=== PATIENT | female | born 1990 | race Caucasian/White ===

== ENCOUNTER 2021-05-11 07:56 | Inpatient (IN) ==
[2021-05-11] MEDS ORDERED: Metoclopramide 10 MG/2 ML VIAL IVP ONE (08:08)
[2021-05-11] MEDS ORDERED: Famotidine 20 MG/2 ML VIAL IVP ONE (08:08)
[2021-05-11] MEDS ORDERED: CeFAZolin 2,000 MG/120 ML BAG IVPB ONE (08:08)
[2021-05-11] MEDS ORDERED: Ringers Solution, Lactated 1,000 ML IVC ONE (08:08)
[2021-05-11] MEDS ORDERED: Ringers Solution, Lactated 1,000 ML IVC SCH (08:15)
[2021-05-11 08:58] LABS: Basophils % 0.3 %; Eosinophils # 0.1 K/mcL (0.0-0.6); Eosinophils % 1.2 %; Hematocrit 36.2 % (35.3-44.9); Hemoglobin 12.3 g/dL (11.5-15.4); Immature Granulocytes % 0.3 % (0-4); Lymphocytes # 1.4 K/mcL (0.6-4.6); Lymphocytes % 19.4 %; Mean Corpuscular Hemoglobin 31.1 pg (28.0-33.3); Mean Corpuscular Volume 91.6 fL (83.0-100.0); Mean Platelet Volume 10.5 fL (9.4-12.4); Monocytes # 0.5 K/mcL (0.0-1.3); Monocytes % 7.2 %; Neutrophils # 5.2 K/mcL (1.6-8.9); Platelet Count 238 K/mcL (140-400); Red Blood Count 3.95 M/mcL (3.82-4.97); Red Cell Distribution Width 14.6 % (11.5-14.5); Segmented Neutrophils % 71.6 %; White Blood Count 7.3 K/mcL (4.3-11.1)
[2021-05-11 09:32] LABS: Amphetamine Screen,Urine Negative ng/mL (Cutoff=1000); Barbiturate Screen,Urine Negative ng/mL (Cutoff=200); Benzodiazepines Screen,Urine Negative ng/mL (Cutoff=200); Cannabinoid Screen,Urine Negative ng/mL (Cutoff = 50); Cocaine Screen,Urine Negative ng/mL (Cutoff= 300); Opiate Screen,Urine Negative ng/mL (Cutoff=300); Phencyclidine Screen,Urine Negative ng/mL (Cutoff=25)
[2021-05-11 09:35] LABS: Influenza A PCR Negative (Negative); Influenza B PCR Negative (Negative); Resp. Syncytial Virus PCR Negative (Negative)
[2021-05-11 10:15] LABS: SARS-CoV-2 by PCR (In House) Negative (Negative)
[2021-05-11] MEDS ORDERED: Oxytocin 20 units/ LR 1000 mL 20 UNIT/1,000 ML BAG IVC ONE (10:19)
[2021-05-11] MEDS ORDERED: *HR* FentaNYL (PF) 100 MCG/2 ML VIAL ONE (10:53)
[2021-05-11] MEDS ORDERED: *HR* Morphine Sulfate/PF 10 MG/10 ML AMPUL ONE (10:53)
[2021-05-11] MEDS ORDERED: Ondansetron 4 MG/2 ML VIAL ONE (11:20)
[2021-05-11] MEDS ORDERED: EPHEDrine 50 MG/ML VIAL ONE (11:41)
[2021-05-11] MEDS ORDERED: *HR* Phenylephrine 10 MG/ML VIAL ONE (11:43)
[2021-05-11] MEDS ORDERED: Ketorolac 30 MG/ML VIAL ONE (11:50)
[2021-05-11] MEDS ORDERED: Acetaminophen IV 1,000 MG/100 ML BAG IVPB ONE (11:50)
[2021-05-11] MEDS ORDERED: *HR* OxyCODONE Immed Rel 5 MG TABLET PO PRN ×2 (12:47→17:08)
[2021-05-11] MEDS ORDERED: Acetaminophen IV 1,000 MG/100 ML BAG IVPB PRN (12:47)
[2021-05-11] MEDS ORDERED: *HR* Nalbuphine 10 MG/ML AMPUL IV PRN (12:48)
[2021-05-11] MEDS ORDERED: Oxytocin 20 units/ LR 1000 mL 20 UNIT/1,000 ML BAG IVC SCH (17:08)
[2021-05-11] MEDS ORDERED: Rho Immune Globulin 1,500 UNIT SYRINGE IM ONE (17:08)
[2021-05-11] MEDS ORDERED: Ondansetron 4 MG/2 ML VIAL IVP PRN (17:08)
[2021-05-11] MEDS: Acetaminophen 325 MG TABLET PO SCH (19:52)
[2021-05-11] MEDS: Ibuprofen 600 MG TABLET PO SCH (19:52)
[2021-05-11] MEDS: cephALEXin 500 MG CAPSULE PO SCH (19:52)
[2021-05-11] MEDS: metroNIDAZOLE 500 MG TABLET PO SCH (19:53)
[2021-05-12 06:18] LABS: Basophils % 0.2 %; Eosinophils # 0.1 K/mcL (0.0-0.6); Eosinophils % 0.7 %; Hematocrit 31.9 % (35.3-44.9); Immature Granulocytes % 0.4 % (0-4); Lymphocytes # 1.5 K/mcL (0.6-4.6); Lymphocytes % 15.9 %; Mean Corpuscular HGB Conc 32.9 g/dL (31.6-35.5); Mean Corpuscular Hemoglobin 30.8 pg (28.0-33.3); Mean Corpuscular Volume 93.5 fL (83.0-100.0); Mean Platelet Volume 10.3 fL (9.4-12.4); Monocytes # 0.6 K/mcL (0.0-1.3); Monocytes % 6.3 %; Platelet Count 181 K/mcL (140-400); Red Blood Count 3.41 M/mcL (3.82-4.97); Red Cell Distribution Width 15.1 % (11.5-14.5); Segmented Neutrophils % 76.5 %; White Blood Count 9.2 K/mcL (4.3-11.1)
[2021-05-12 06:19] LABS: Hemoglobin 10.5 g/dL (11.5-15.4)
[2021-05-12] MEDS: Acetaminophen 325 MG TABLET PO SCH ×3 (06:40→19:14)
[2021-05-12] MEDS: Ibuprofen 600 MG TABLET PO SCH ×3 (06:40→19:14)
[2021-05-12] MEDS: metroNIDAZOLE 500 MG TABLET PO SCH ×3 (08:50→19:14)
[2021-05-12] MEDS: Simethicone 80 MG TAB.CHEW PO PRN ×2 (08:50→19:13)
[2021-05-12] MEDS: Prenatal Vit/FA 1 EACH TABLET PO SCH (08:50)
[2021-05-12] MEDS: cephALEXin 500 MG CAPSULE PO SCH ×3 (08:50→19:14)
[2021-05-12 22:15] VITALS: O2SAT 98
[2021-05-13] MEDS: Prenatal Vit/FA 1 EACH TABLET PO SCH (07:40)
[2021-05-13] MEDS: Acetaminophen 325 MG TABLET PO SCH (07:40)
[2021-05-13] MEDS: Ibuprofen 600 MG TABLET PO SCH (07:40)
[2021-05-13] MEDS: cephALEXin 500 MG CAPSULE PO SCH (07:40)
[2021-05-13] MEDS: metroNIDAZOLE 500 MG TABLET PO SCH (07:40)
[2021-05-13 08:08] VITALS: BP 137/87; PULSE 87; TEMP 97.9
== END 2021-05-13 12:00 | disposition home or self-care (01) | DRG 540 ==
LOC: 1NENULAB 07:56 → 1NENUOBS 14:50
PROVIDERS: ADMIT Obstetrics & Gynecology; ATTEND Obstetrics & Gynecology